=== PATIENT | female | born 1995 | race Caucasian/White ===

== ENCOUNTER 2022-02-07 12:39 | Outpatient (CLI) | payer MEDICAID ==
[~2022-02-07 12:39] MED LIST: ALPR-624 PO; CITA20TA28 PO
== END 2022-02-07 23:59 | disposition home or self-care (01) ==
LOC: RAD 12:39
PROVIDERS: ATTEND General Practice
DX: R42 Dizziness and giddiness (principal); V43.52XA Car driver injured in collision with other type car in traffic accident, initial encounter
CPT/HCPCS: 70450